=== PATIENT | male | born 1945 | race Caucasian/White ===

== ENCOUNTER 2022-01-07 11:05 | Inpatient (IN) | payer MEDICARE, OTHER ==
[~2022-01-07] VITALS: Ht 180.3 cm; Wt 101.6 kg
[~2022-01-07 11:05] MED LIST: AMLO-489 PO; ATOR20TA50 PO; DULO20CA PO; GABA300C10 PO; LOSA100T33 PO; METO1TAB9 PO; SULI200T5 PO
[2022-01-07] MEDS ORDERED: SODIUM CHLORIDE 0.9% 2,000 ML IV ONE (11:24)
[2022-01-07] MEDS ORDERED: VANCOMYCIN 1GM/250ML 250 ML IV ONE (11:45)
[2022-01-07] MEDS ORDERED: CEFEPIME 1GM/ 50ML 50 ML IV ONE (11:45)
[2022-01-07 12:04] LABS: Basophils # (auto) 0 10 ^3/uL (0-0.2); Basophils % (auto) 0.2 % (0.0-2.0); Eosinophils # (auto) 0.2 10 ^3/uL (0-0.8); Eosinophils % (auto) 2.4 % (0.0-7.0); Hematocrit 44.3 % (41.0-53.0); Hemoglobin 14.6 g/dL (13.5-17.5); Lymphocytes # (auto) 0.4 10 ^3/uL (0.4-5.4); Mean Corpuscular Hemoglobin 31.1 pg (28.0-32.0); Mean Corpuscular Hgb Conc. 33.1 g/dL (32.0-36.0); Mean Corpuscular Volume 94.2 fL (80.0-100.0); Monocytes # (auto) 0.6 10 ^3/uL (0-1.3); Monocytes % (auto) 6.3 % (0.0-12.0); Neutrophils # (auto) 8.5 10 ^3/uL (1.6-8.6); Neutrophils % (auto) 87.1 % (37.0-80.0); Red Cell Distribution Width 16.7 % (11.8-14.3); White Blood Cell 9.7 10^3/uL (4.4-10.8)
[2022-01-07 12:18] LABS: Albumin 2.9 g/dL (3.4-5.0); Magnesium 2.8 mg/dL (1.6-2.6)
[2022-01-07 12:21] LABS: BUN/Creatinine Ratio 13.7; Bilirubin, Total 1.1 mg/dL (0.2-1.0); Total Protein 6.2 g/dL (6.4-8.2)
[2022-01-07] MEDS ORDERED: ALBUTEROL SULF 2.5 MG/0.5ML(0.5%) NEB SOLN NEB ONE (13:00)
[2022-01-07] MEDS ORDERED: CALCIUM GLUC 1,000mg/50ml-NS 50 ML IV ONE (13:00)
[2022-01-07] MEDS ORDERED: DEXTROSE (50%) 50ML SYRG IV ONE (13:00)
[2022-01-07] MEDS ORDERED: InsuLIN REG 1unit/0.01ml Soln (100units/ml) IV ONE (13:00)
[2022-01-07] MEDS ORDERED: SODIUM ZIRCONIUM CYCL 10 GM PAK PO ONE ×2 (13:00→19:30)
[2022-01-07] MEDS ORDERED: SODIUM BICARBONATE 50ML VIAL 150 ML in D5W 5% 1,000 ML IV ONE (13:15)
[2022-01-07] MEDS ORDERED: SODIUM BICARBONATE 8.4 % INJ 50ML VIAL IV ONE (13:15)
[2022-01-07] MEDS ORDERED: FUROSEMIDE 100 MG/10ML VIAL IV ONE (13:15)
[2022-01-07 13:51] LABS: INR 1.14 (0.9-1.15); Partial Thromboplastin Time 34.2 sec (23.6-33.0)
[2022-01-07 16:05] LABS: Urine Bacteria NONE SEEN /hpf (None Seen); Urine Blood TRACE /uL (Negative); Urine WBC <1 /hpf (0 - 3)
[2022-01-07 16:59] LABS: BUN/Creatinine Ratio 14.6; Potassium 5.1 mmol/L (3.5-5.1)
[2022-01-07] MEDS ORDERED: cefTRIAXone 1GM/50ML D5W 50 ML IV ONE (19:30)
[2022-01-07] MEDS ORDERED: ONDANSETRON HCL 4 MG/2 ML VIAL IV PRN (19:30)
[2022-01-07] MEDS ORDERED: ACETAMINOPHEN 325 MG TAB PO PRN (19:30)
[2022-01-07] MEDS ORDERED: DOCUSATE SOD 100 MG CAP PO PRN (19:30)
[2022-01-07] MEDS ORDERED: TAMSULOSIN HYDROCHLORIDE 0.4 MG CAP PO ONE (19:45)
[2022-01-07 19:59] LABS: Creatinine, Urine 39 mg/dL (30.0-125.0); Sodium Urine 26 mmol/L (40-220)
[2022-01-07] MEDS ORDERED: SODIUM CHLORIDE 0.9% 1,000 ML IV ONE ×2 (20:45→23:15)
[2022-01-07] MEDS ORDERED: FUROSEMIDE 40 MG/4 ML VIAL IV SCH (22:00)
[2022-01-07] MEDS ORDERED: ALBUMIN 25% 100 ML IV ONE (22:15)
[2022-01-07] MEDS: SODIUM CHLOR 0.9% PF (SALINE LOCK) 10ML VIAL/SYR IV SCH (22:17)
[2022-01-08] MEDS ORDERED: NOREPINEPHRINE 8 MG/250ML KIT 250 ML IV ONE (02:14)
[2022-01-08] MEDS: NOREPINEPHRINE 8 MG/250ML KIT 250 ML IV SCH (02:15)
[2022-01-08] MEDS: HYDROcodone-ACET 5/325MG TAB PO PRN (02:25)
[2022-01-08 02:46] LABS: BUN/Creatinine Ratio 19.5; Calcium 7.6 mg/dL (8.5-10.1); Potassium 4.3 mmol/L (3.5-5.1)
[2022-01-08] MEDS: SODIUM CHLOR 0.9% PF (SALINE LOCK) 10ML VIAL/SYR IV SCH ×3 (06:29→20:42)
[2022-01-08 07:23] LABS: Calcium 7.9 mg/dL (8.5-10.1); Potassium 4.2 mmol/L (3.5-5.1)
[2022-01-08 07:26] LABS: BUN/Creatinine Ratio 22.7
[2022-01-08] MEDS: SODIUM CHLORIDE 0.9% 1,000 ML IV SCH (11:00)
[2022-01-08 11:31] LABS: BUN/Creatinine Ratio 24.9; Potassium 4.8 mmol/L (3.5-5.1)
[2022-01-08] MEDS: FUROSEMIDE 40 MG/4 ML VIAL IV SCH (18:06)
[2022-01-09] MEDS: HYDROcodone-ACET 5/325MG TAB PO PRN (01:27)
[2022-01-09] MEDS: NOREPINEPHRINE 8 MG/250ML KIT 250 ML IV SCH (02:15)
[2022-01-09] MEDS: SODIUM CHLORIDE 0.9% 1,000 ML IV SCH ×2 (02:40→18:14)
[2022-01-09] MEDS: SODIUM CHLOR 0.9% PF (SALINE LOCK) 10ML VIAL/SYR IV SCH ×3 (03:46→21:22)
[2022-01-09] MEDS: FUROSEMIDE 40 MG/4 ML VIAL IV SCH ×2 (05:08→17:39)
[2022-01-09 06:21] LABS: Basophils # (auto) 0 10 ^3/uL (0-0.2); Basophils % (auto) 0.2 % (0.0-2.0); Eosinophils # (auto) 0.3 10 ^3/uL (0-0.8); Eosinophils % (auto) 3.3 % (0.0-7.0); Hematocrit 38.5 % (41.0-53.0); Hemoglobin 12.9 g/dL (13.5-17.5); Lymphocytes # (auto) 0.6 10 ^3/uL (0.4-5.4); Lymphocytes % (auto) 7.5 % (10.0-50.0); Mean Corpuscular Hemoglobin 31.1 pg (28.0-32.0); Mean Corpuscular Hgb Conc. 33.5 g/dL (32.0-36.0); Monocytes # (auto) 0.7 10 ^3/uL (0-1.3); Neutrophils # (auto) 6.7 10 ^3/uL (1.6-8.6); Red Blood Cells 4.14 10^6/uL (4.5-5.90); Red Cell Distribution Width 16.7 % (11.8-14.3); White Blood Cell 8.2 10^3/uL (4.4-10.8)
[2022-01-09 06:39] LABS: Albumin 2.7 g/dL (3.4-5.0); Calcium 8.4 mg/dL (8.5-10.1); Potassium 4.6 mmol/L (3.5-5.1)
[2022-01-09 06:43] LABS: Total Protein 5.8 g/dL (6.4-8.2)
[2022-01-09 16:52] VITALS: BP 137/80
[2022-01-09] MEDS ORDERED: TAMSULOSIN HYDROCHLORIDE 0.4 MG CAP PO SCH (18:00)
[2022-01-09 21:55] VITALS: BP 147/90
[2022-01-10 05:00] VITALS: BP 151/77
[2022-01-10 05:15] LABS: Basophils # (auto) 0 10 ^3/uL (0-0.2); Basophils % (auto) 0.6 % (0.0-2.0); Eosinophils # (auto) 0.3 10 ^3/uL (0-0.8); Eosinophils % (auto) 4.1 % (0.0-7.0); Hematocrit 36.9 % (41.0-53.0); Hemoglobin 12.4 g/dL (13.5-17.5); Lymphocytes % (auto) 13.5 % (10.0-50.0); Mean Corpuscular Hemoglobin 31.7 pg (28.0-32.0); Mean Corpuscular Hgb Conc. 33.5 g/dL (32.0-36.0); Mean Corpuscular Volume 94.4 fL (80.0-100.0); Monocytes # (auto) 0.7 10 ^3/uL (0-1.3); Monocytes % (auto) 9.9 % (0.0-12.0); Neutrophils # (auto) 5.2 10 ^3/uL (1.6-8.6); Neutrophils % (auto) 71.9 % (37.0-80.0); Red Cell Distribution Width 16.3 % (11.8-14.3); White Blood Cell 7.3 10^3/uL (4.4-10.8)
[2022-01-10 05:35] LABS: Albumin 2.6 g/dL (3.4-5.0); Calcium 8.4 mg/dL (8.5-10.1); Potassium 3.7 mmol/L (3.5-5.1)
[2022-01-10 05:39] LABS: BUN/Creatinine Ratio 31.1; Bilirubin, Total 0.8 mg/dL (0.2-1.0); Total Protein 5.9 g/dL (6.4-8.2)
[2022-01-10] MEDS: FUROSEMIDE 40 MG/4 ML VIAL IV SCH (05:45)
[2022-01-10] MEDS: SODIUM CHLOR 0.9% PF (SALINE LOCK) 10ML VIAL/SYR IV SCH ×2 (05:46→14:12)
[2022-01-10 09:00] VITALS: BP 140/77
[2022-01-10] MEDS ORDERED: TAM04C PO (10:14)
[2022-01-10] MEDS ORDERED: POTA10TA51 PO (10:14)
[2022-01-10] MEDS ORDERED: FURO1TAB31 PO (10:14)
[2022-01-10] MEDS: SODIUM CHLORIDE 0.9% 1,000 ML IV SCH (11:30)
[2022-01-10 13:00] VITALS: BP 134/71
[2022-01-10 15:39] VITALS: BP 145/68
[2022-01-10 15:49] VITALS: BP 145/68
[2022-01-10 16:41] VITALS: BP 140/80
== END 2022-01-10 18:04 | disposition home or self-care (01) | DRG 70 ==
LOC: EDBD 11:05 → ER 11:05 → OVERFLOW 19:24 → WEST WING 01-09 13:02
PROVIDERS: ADMIT Internal Medicine; ATTEND Family Medicine
DX: G93.41 Metabolic encephalopathy (principal); I50.41 Acute combined systolic (congestive) and diastolic (congestive) heart failure; N17.0 Acute kidney failure with tubular necrosis; J98.11 Atelectasis; N13.8 Other obstructive and reflux uropathy; N39.0 Urinary tract infection, site not specified; I11.0 Hypertensive heart disease with heart failure; E87.5 Hyperkalemia; N40.1 Benign prostatic hyperplasia with lower urinary tract symptoms; E78.00 Pure hypercholesterolemia, unspecified; E11.9 Type 2 diabetes mellitus without complications; M19.90 Unspecified osteoarthritis, unspecified site; R79.89 Other specified abnormal findings of blood chemistry; R94.31 Abnormal electrocardiogram [ECG] [EKG]; Z90.49 Acquired absence of other specified parts of digestive tract; Z79.899 Other long term (current) drug therapy; Z20.822 Contact with and (suspected) exposure to COVID-19
CPT/HCPCS: 36415; 51702; 70450; 71045; 74176; 76775; 80048; 80053; 81001; 82570; 83605; 83735; 83880; 84154; 84300; 84484; 85025; 85610; 85730; 87040; 87086; 93005; 93306; 94640; 96361; 96365; 96367; 96368; 96375; 99291; G0378; J0696; J1815; J2405; P9047

== ENCOUNTER 2022-05-26 13:41 | Inpatient (IN) | payer MEDICARE, OTHER ==
[~2022-05-26] VITALS: Ht 180.3 cm; Wt 80.0 kg
[~2022-05-26 13:41] MED LIST changes: +FURO1TAB31 PO; +POTA10TA51 PO; +TAM04C PO
[2022-05-26] MEDS ORDERED: AZITHROMYCIN 500MG/ 250ML 250 ML IV ONE (14:00)
[2022-05-26] MEDS ORDERED: methylPREDNISolone SOD SUCC 125 MG/2 ML VL IV ONE (14:00)
[2022-05-26 14:25] VITALS: BP 73/52
[2022-05-26] MEDS ORDERED: REMDESIVIR PER PHARMACY 0 ML IV SCH (15:00)
[2022-05-26] MEDS ORDERED: NOREPINEPHRINE 8 MG/250ML KIT 250 ML IV SCH (15:00)
[2022-05-26 15:18] LABS: Basophils # (auto) 0 10 ^3/uL (0-0.2); Basophils % (auto) 0.4 % (0.0-2.0); Eosinophils # (auto) 0 10 ^3/uL (0-0.8); Eosinophils % (auto) 0.1 % (0.0-7.0); Hematocrit 48.5 % (41.0-53.0); Hemoglobin 16.1 g/dL (13.5-17.5); Lymphocytes # (auto) 0.9 10 ^3/uL (0.4-5.4); Lymphocytes % (auto) 25.2 % (10.0-50.0); Mean Corpuscular Hemoglobin 31.5 pg (28.0-32.0); Mean Corpuscular Hgb Conc. 33.2 g/dL (32.0-36.0); Mean Corpuscular Volume 94.6 fL (80.0-100.0); Monocytes # (auto) 0.3 10 ^3/uL (0-1.3); Monocytes % (auto) 7.5 % (0.0-12.0); Neutrophils # (auto) 2.3 10 ^3/uL (1.6-8.6); Neutrophils % (auto) 66.8 % (37.0-80.0); Nucleated Red Blood Cells % 0.3 %; Red Blood Cells 5.13 10^6/uL (4.5-5.90); Red Cell Distribution Width 14.4 % (11.8-14.3); White Blood Cell 3.5 10^3/uL (4.4-10.8)
[2022-05-26 15:38] LABS: Lactic Acid w/Reflex 2.4 mmol/L (0.4-2.0)
[2022-05-26 15:39] LABS: Albumin 3.2 g/dL (3.4-5.0); Calcium 8.1 mg/dL (8.5-10.1); Magnesium 2.4 mg/dL (1.6-2.6); Potassium 4.7 mmol/L (3.5-5.1)
[2022-05-26 15:42] LABS: BUN/Creatinine Ratio 18.1; Bilirubin, Total 0.8 mg/dL (0.2-1.0); Total Protein 6.3 g/dL (6.4-8.2)
[2022-05-26] MEDS ORDERED: REMDESIVIR 200 MG in NS 210ml LOADING DOSE ADULT IV ONE (17:15)
[2022-05-26] MEDS ORDERED: MORPHINE SULFATE INJ 2 MG/ml SYRG IV PRN ×2 (17:30)
[2022-05-26] MEDS ORDERED: ACETAMINOPHEN 500 MG TAB PO PRN (17:30)
[2022-05-26] MEDS ORDERED: DOCUSATE SOD 100 MG CAP PO PRN (17:30)
[2022-05-26] MEDS ORDERED: HYDROcodone-ACET 5/325MG TAB PO PRN (17:30)
[2022-05-26] MEDS ORDERED: ONDANSETRON HCL 4 MG/2 ML VIAL IV PRN (17:30)
[2022-05-26] MEDS ORDERED: NITROGLYCERIN 0.4 MG SL TAB SL PRN (17:30)
[2022-05-26 20:21] LABS: Urine Amorphous Crystal FEW /hpf (None Seen); Urine Bacteria NONE SEEN /hpf (None Seen); Urine Blood TRACE /uL (Negative); Urine Hyaline Cast FEW /lpf (0 - 2); Urine Mucus FEW (None Seen); Urine Specific Gravity 1.014 (1.001-1.035); Urine WBC 143 /hpf (0 - 3); Urine WBC Clumps PRESENT /hpf (None Seen)
[2022-05-26] MEDS: ENOXAPARIN SOD 40 MG/0.4 ML SYRINGE SC SCH (21:45)
[2022-05-26] MEDS ORDERED: DOXYCYCLINE 100MG/250ML 250 ML IV SCH (22:00)
[2022-05-27 05:04] LABS: Basophils # (auto) 0 10 ^3/uL (0-0.2); Basophils % (auto) 0.1 % (0.0-2.0); Eosinophils # (auto) 0 10 ^3/uL (0-0.8); Hematocrit 47.8 % (41.0-53.0); Hemoglobin 16.3 g/dL (13.5-17.5); Lymphocytes # (auto) 0.5 10 ^3/uL (0.4-5.4); Lymphocytes % (auto) 5.3 % (10.0-50.0); Mean Corpuscular Hemoglobin 31.5 pg (28.0-32.0); Mean Corpuscular Volume 92.6 fL (80.0-100.0); Monocytes # (auto) 0.4 10 ^3/uL (0-1.3); Monocytes % (auto) 4.3 % (0.0-12.0); Neutrophils # (auto) 8.9 10 ^3/uL (1.6-8.6); Neutrophils % (auto) 90.3 % (37.0-80.0); Red Blood Cells 5.17 10^6/uL (4.5-5.90); Red Cell Distribution Width 14.3 % (11.8-14.3); White Blood Cell 9.9 10^3/uL (4.4-10.8)
[2022-05-27 05:05] VITALS: BP_SYST 129; BP_SYST 140; BP_DIAS 84; BP_DIAS 86
[2022-05-27 05:14] LABS: Albumin 3.2 g/dL (3.4-5.0); BUN/Creatinine Ratio 20.2; Calcium 8.9 mg/dL (8.5-10.1)
[2022-05-27 05:17] LABS: Bilirubin, Total 0.7 mg/dL (0.2-1.0); Total Protein 6.6 g/dL (6.4-8.2)
[2022-05-27 08:00] VITALS: BP 140/86
[2022-05-27] MEDS: AZITHROMYCIN 500MG/ 250ML 250 ML IV SCH (08:30)
[2022-05-27] MEDS: PANTOPRAZOLE 40 MG/10 ML VIAL INJ IV SCH (08:30)
[2022-05-27] MEDS: ASCORBIC ACID 1,000 MG TAB PO SCH (08:30)
[2022-05-27] MEDS: ZINC SULFATE 220mg CAP or TAB PO SCH (08:31)
[2022-05-27] MEDS: CHOLECALCIFEROL (VITD3) 2,000 UNIT CAP/TAB PO SCH (08:31)
[2022-05-27] MEDS: ENOXAPARIN SOD 40 MG/0.4 ML SYRINGE SC SCH (08:40)
[2022-05-27 08:42] VITALS: BP 140/86
[2022-05-27] MEDS ORDERED: ENOXAPARIN SOD 40 MG/0.4 ML SYRINGE SC SCH (10:00)
[2022-05-27] MEDS ORDERED: DexAMETHasone SOD PHOS 10MG/1ML VIAL INJ IV SCH (10:00)
[2022-05-27] MEDS ORDERED: FUROSEMIDE 20 MG/2 ML VIAL IV ONE (10:15)
[2022-05-27] MEDS ORDERED: cefTRIAXone 1GM/50ML D5W 50 ML IV ONE (10:15)
[2022-05-27] MEDS ORDERED: ALBUTEROL SULF 2.5 MG/0.5ML(0.5%) NEB SOLN NEB SCH (12:00)
[2022-05-27] MEDS ORDERED: IPRATROPIUM BROM 0.5 MG/2.5ML INH SOL NEB SCH (12:00)
[2022-05-27 12:38] VITALS: BP 130/84
[2022-05-27] MEDS: ALBUTEROL SULF HFA 90MCG INH 200DOSE IN SCH ×2 (14:29→22:50)
[2022-05-27] MEDS: REMDESIVIR 100mg 100 MG in SODIUM CHL 0.9% 230 ML IV SCH (15:26)
[2022-05-27 16:48] VITALS: BP 22/80
[2022-05-27] MEDS ORDERED: ROPI3TAB4 PO (21:21)
[2022-05-27] MEDS ORDERED: BISA-13 PO (21:21)
[2022-05-27 22:00] VITALS: BP 151/93
[2022-05-27] MEDS: BUDESONIDE (INHALATION) 180 MCG IH IN SCH (22:50)
[2022-05-28 05:00] VITALS: BP 144/84
[2022-05-28] MEDS: ALBUTEROL SULF HFA 90MCG INH 200DOSE IN SCH ×3 (06:06→22:00)
[2022-05-28 06:24] LABS: Basophils # (auto) 0 10 ^3/uL (0-0.2); Eosinophils # (auto) 0 10 ^3/uL (0-0.8); Hemoglobin 14.6 g/dL (13.5-17.5); Lymphocytes # (auto) 0.6 10 ^3/uL (0.4-5.4); Monocytes # (auto) 0.6 10 ^3/uL (0-1.3); Neutrophils # (auto) 8.7 10 ^3/uL (1.6-8.6)
[2022-05-28 06:28] LABS: Basophils % (auto) 0.1 % (0.0-2.0); Hematocrit 41.9 % (41.0-53.0); Lymphocytes % (auto) 6.1 % (10.0-50.0); Mean Corpuscular Hgb Conc. 34.8 g/dL (32.0-36.0); Mean Corpuscular Volume 91.8 fL (80.0-100.0); Monocytes % (auto) 6.3 % (0.0-12.0); Neutrophils % (auto) 87.5 % (37.0-80.0); Red Blood Cells 4.57 10^6/uL (4.5-5.90); Red Cell Distribution Width 14.2 % (11.8-14.3); White Blood Cell 9.9 10^3/uL (4.4-10.8)
[2022-05-28 06:45] LABS: Albumin 2.9 g/dL (3.4-5.0); Calcium 8.3 mg/dL (8.5-10.1); Potassium 4.1 mmol/L (3.5-5.1)
[2022-05-28 06:47] LABS: BUN/Creatinine Ratio 50.9
[2022-05-28 06:50] LABS: Bilirubin, Total 0.9 mg/dL (0.2-1.0); Total Protein 5.5 g/dL (6.4-8.2)
[2022-05-28 08:00] VITALS: BP 136/94
[2022-05-28] MEDS: PANTOPRAZOLE 40 MG/10 ML VIAL INJ IV SCH (09:37)
[2022-05-28] MEDS: cefTRIAXone 1GM/50ML D5W 50 ML IV SCH (09:37)
[2022-05-28] MEDS: CHOLECALCIFEROL (VITD3) 2,000 UNIT CAP/TAB PO SCH (09:39)
[2022-05-28] MEDS: ENOXAPARIN SOD 40 MG/0.4 ML SYRINGE SC SCH (09:39)
[2022-05-28] MEDS: ZINC SULFATE 220mg CAP or TAB PO SCH (09:39)
[2022-05-28] MEDS: ASCORBIC ACID 1,000 MG TAB PO SCH (09:39)
[2022-05-28] MEDS: DexAMETHasone SOD PHOS 10MG/1ML VIAL INJ IV SCH (09:44)
[2022-05-28] MEDS ORDERED: FUROSEMIDE 20 MG/2 ML VIAL IV SCH (10:00)
[2022-05-28] MEDS: BUDESONIDE (INHALATION) 180 MCG IH IN SCH ×2 (10:20→22:00)
[2022-05-28] MEDS: AZITHROMYCIN 500MG/ 250ML 250 ML IV SCH (11:28)
[2022-05-28 12:00] VITALS: BP 140/84
[2022-05-28] MEDS: REMDESIVIR 100mg 100 MG in SODIUM CHL 0.9% 230 ML IV SCH (14:30)
[2022-05-28] MEDS ORDERED: ROPINIROLE PO ONE (15:00)
[2022-05-28 16:00] VITALS: BP 147/84
[2022-05-28 21:39] VITALS: BP 132/72
[2022-05-29 05:00] VITALS: BP 131/68
[2022-05-29 07:18] LABS: Albumin 2.6 g/dL (3.4-5.0); Calcium 8.2 mg/dL (8.5-10.1); Potassium 3.9 mmol/L (3.5-5.1)
[2022-05-29 07:24] LABS: BUN/Creatinine Ratio 49.1; Total Protein 5.4 g/dL (6.4-8.2)
[2022-05-29] MEDS: ALBUTEROL SULF HFA 90MCG INH 200DOSE IN SCH ×3 (07:58→18:36)
[2022-05-29 08:00] VITALS: BP 127/71
[2022-05-29] MEDS: cefTRIAXone 1GM/50ML D5W 50 ML IV SCH (08:21)
[2022-05-29] MEDS: BUDESONIDE (INHALATION) 180 MCG IH IN SCH ×2 (10:00→18:34)
[2022-05-29] MEDS ORDERED: GLUCAGON HYDROCHLORIDE (RDNA) 1 MG VIAL IV ONE (10:15)
[2022-05-29] MEDS ORDERED: POTASSIUM CHL 20 Meq TABLET PO ONE (10:45)
[2022-05-29] MEDS: ZINC SULFATE 220mg CAP or TAB PO SCH (11:23)
[2022-05-29] MEDS: ENOXAPARIN SOD 40 MG/0.4 ML SYRINGE SC SCH (11:23)
[2022-05-29] MEDS: AZITHROMYCIN 500MG/ 250ML 250 ML IV SCH (11:23)
[2022-05-29] MEDS: CHOLECALCIFEROL (VITD3) 2,000 UNIT CAP/TAB PO SCH (11:24)
[2022-05-29] MEDS: ASCORBIC ACID 1,000 MG TAB PO SCH (11:24)
[2022-05-29] MEDS: FUROSEMIDE 20 MG/2 ML VIAL IV SCH (11:25)
[2022-05-29] MEDS: DexAMETHasone SOD PHOS 10MG/1ML VIAL INJ IV SCH (11:26)
[2022-05-29 12:00] VITALS: BP 126/69
[2022-05-29] MEDS: ROPINIROLE 3 MG PO SCH (15:10)
[2022-05-29] MEDS: REMDESIVIR 100mg 100 MG in SODIUM CHL 0.9% 230 ML IV SCH (15:18)
[2022-05-29 16:00] VITALS: BP 121/72
[2022-05-29 22:00] VITALS: BP 137/78
[2022-05-30 05:00] VITALS: BP 145/73
[2022-05-30 06:29] LABS: Basophils # (auto) 0 10 ^3/uL (0-0.2); Basophils % (auto) 0.1 % (0.0-2.0); Eosinophils # (auto) 0 10 ^3/uL (0-0.8); Lymphocytes # (auto) 0.8 10 ^3/uL (0.4-5.4); Lymphocytes % (auto) 8.9 % (10.0-50.0); Mean Corpuscular Hemoglobin 31.2 pg (28.0-32.0); Mean Corpuscular Volume 91.9 fL (80.0-100.0); Monocytes # (auto) 0.8 10 ^3/uL (0-1.3); Monocytes % (auto) 8.9 % (0.0-12.0); Neutrophils # (auto) 7.1 10 ^3/uL (1.6-8.6); Neutrophils % (auto) 82.1 % (37.0-80.0); Red Blood Cells 4.79 10^6/uL (4.5-5.90); White Blood Cell 8.7 10^3/uL (4.4-10.8)
[2022-05-30 06:43] LABS: Albumin 2.8 g/dL (3.4-5.0); BUN/Creatinine Ratio 48.3; Calcium 8.7 mg/dL (8.5-10.1); Potassium 3.6 mmol/L (3.5-5.1)
[2022-05-30 06:46] LABS: Bilirubin, Total 0.8 mg/dL (0.2-1.0); Total Protein 5.9 g/dL (6.4-8.2)
[2022-05-30] MEDS: ALBUTEROL SULF HFA 90MCG INH 200DOSE IN SCH ×2 (07:22→14:00)
[2022-05-30] MEDS: BUDESONIDE (INHALATION) 180 MCG IH IN SCH (07:23)
[2022-05-30 09:00] VITALS: BP 144/75
[2022-05-30] MEDS: DexAMETHasone SOD PHOS 10MG/1ML VIAL INJ IV SCH (09:25)
[2022-05-30] MEDS: cefTRIAXone 1GM/50ML D5W 50 ML IV SCH (09:25)
[2022-05-30] MEDS: FUROSEMIDE 20 MG/2 ML VIAL IV SCH (09:26)
[2022-05-30] MEDS: ZINC SULFATE 220mg CAP or TAB PO SCH (09:27)
[2022-05-30] MEDS: CHOLECALCIFEROL (VITD3) 2,000 UNIT CAP/TAB PO SCH (09:27)
[2022-05-30] MEDS: ROPINIROLE 3 MG PO SCH (09:27)
[2022-05-30] MEDS: ASCORBIC ACID 1,000 MG TAB PO SCH (09:27)
[2022-05-30] MEDS: AZITHROMYCIN 500MG/ 250ML 250 ML IV SCH (11:45)
[2022-05-30 13:00] VITALS: BP 130/78
[2022-05-30] MEDS ORDERED: DOXYCYCLINE 100 MG TAB/CAP PO ONE (13:45)
[2022-05-30] MEDS: REMDESIVIR 100mg 100 MG in SODIUM CHL 0.9% 230 ML IV SCH (15:30)
[2022-05-30 16:30] VITALS: BP 155/83
[2022-05-30] MEDS: DOXYCYCLINE 100 MG TAB/CAP PO SCH (21:40)
[2022-05-30 22:00] VITALS: BP 154/79
[2022-05-31 05:00] VITALS: BP 141/73
[2022-05-31 08:00] VITALS: BP 135/80
[2022-05-31] MEDS: cefTRIAXone 1GM/50ML D5W 50 ML IV SCH (08:43)
[2022-05-31] MEDS: AZITHROMYCIN 500MG/ 250ML 250 ML IV SCH (09:37)
[2022-05-31] MEDS: FUROSEMIDE 20 MG/2 ML VIAL IV SCH (09:38)
[2022-05-31] MEDS: ZINC SULFATE 220mg CAP or TAB PO SCH (09:39)
[2022-05-31] MEDS: DOXYCYCLINE 100 MG TAB/CAP PO SCH ×2 (09:39→22:19)
[2022-05-31] MEDS: CHOLECALCIFEROL (VITD3) 2,000 UNIT CAP/TAB PO SCH (09:39)
[2022-05-31] MEDS: ASCORBIC ACID 1,000 MG TAB PO SCH (09:39)
[2022-05-31] MEDS ORDERED: DexAMETHasone 4 MG TAB PO SCH (10:00)
[2022-05-31] MEDS: ALBUTEROL SULF HFA 90MCG INH 200DOSE IN SCH ×3 (10:55→19:00)
[2022-05-31] MEDS: BUDESONIDE (INHALATION) 180 MCG IH IN SCH ×3 (10:55→19:00)
[2022-05-31 12:00] VITALS: BP 133/82
[2022-05-31 16:00] VITALS: BP 137/89
[2022-05-31] MEDS: Juven Orange Powder PACKET 27.5gm PO SCH (18:50)
[2022-05-31 22:00] VITALS: BP 125/75
[2022-06-01] VITALS (10 sets, daily range): BP systolic 118–137; BP diastolic 83–90
[2022-06-01] MEDS: ALBUTEROL SULF HFA 90MCG INH 200DOSE IN SCH ×3 (06:00→19:10)
[2022-06-01] MEDS: cefTRIAXone 1GM/50ML D5W 50 ML IV SCH (09:02)
[2022-06-01] MEDS: ASCORBIC ACID 1,000 MG TAB PO SCH (10:11)
[2022-06-01] MEDS: CHOLECALCIFEROL (VITD3) 2,000 UNIT CAP/TAB PO SCH (10:11)
[2022-06-01] MEDS: DOXYCYCLINE 100 MG TAB/CAP PO SCH ×2 (10:11→21:58)
[2022-06-01] MEDS: ZINC SULFATE 220mg CAP or TAB PO SCH (10:11)
[2022-06-01] MEDS: DexAMETHasone 4 MG TAB PO SCH (10:13)
[2022-06-01] MEDS: BUDESONIDE (INHALATION) 180 MCG IH IN SCH ×2 (10:18→19:10)
[2022-06-01] MEDS: FUROSEMIDE 40 MG TAB PO SCH (10:24)
[2022-06-01] MEDS: POTASSIUM CHL 10 Meq TABLET PO SCH (10:25)
[2022-06-01] MEDS: Juven Orange Powder PACKET 27.5gm PO SCH ×2 (12:23→18:00)
[2022-06-02 05:00] VITALS: BP 117/85
[2022-06-02 08:00] VITALS: BP 128/80
[2022-06-02] MEDS: Juven Orange Powder PACKET 27.5gm PO SCH (08:00)
[2022-06-02] MEDS: cefTRIAXone 1GM/50ML D5W 50 ML IV SCH (09:20)
[2022-06-02] MEDS: CHOLECALCIFEROL (VITD3) 2,000 UNIT CAP/TAB PO SCH (09:49)
[2022-06-02] MEDS: ZINC SULFATE 220mg CAP or TAB PO SCH (09:49)
[2022-06-02] MEDS: ASCORBIC ACID 1,000 MG TAB PO SCH (09:50)
[2022-06-02] MEDS: POTASSIUM CHL 10 Meq TABLET PO SCH (09:50)
[2022-06-02] MEDS: DOXYCYCLINE 100 MG TAB/CAP PO SCH (09:50)
[2022-06-02] MEDS: FUROSEMIDE 40 MG TAB PO SCH (09:50)
[2022-06-02] MEDS: ALBUTEROL SULF HFA 90MCG INH 200DOSE IN SCH ×2 (10:15→15:07)
[2022-06-02] MEDS: BUDESONIDE (INHALATION) 180 MCG IH IN SCH (10:16)
[2022-06-02 12:00] VITALS: BP 125/87
[2022-06-02] MEDS: DexAMETHasone 4 MG TAB PO SCH (14:17)
== END 2022-06-02 15:20 | DRG 871 ==
LOC: EDUNIT# 13:41 → EDBD 13:41 → ER 13:43 → TELE 17:39 → TELE-CENTR 05-27 04:50
PROVIDERS: ADMIT Nurse Practitioner Family; ATTEND Internal Medicine Pulmonary Disease
PROC: 5A09357 Assistance with Respiratory Ventilation, Less than 24 Consecutive Hours, Continuous Positive Airway Pressure (ICD-10-PCS; principal; 2022-05-26)
PROC: XW033E5 Introduction of Remdesivir Anti-infective into Peripheral Vein, Percutaneous Approach, New Technology Group 5 (ICD-10-PCS; 2022-05-26)
DX: A41.89 Other specified sepsis (principal); J12.82 Pneumonia due to coronavirus disease 2019; R65.21 Severe sepsis with septic shock; U07.1 COVID-19; J96.01 Acute respiratory failure with hypoxia; N39.0 Urinary tract infection, site not specified; I50.32 Chronic diastolic (congestive) heart failure; I11.0 Hypertensive heart disease with heart failure; E11.9 Type 2 diabetes mellitus without complications; D69.6 Thrombocytopenia, unspecified; Z90.49 Acquired absence of other specified parts of digestive tract; B96.4 Proteus (mirabilis) (morganii) as the cause of diseases classified elsewhere; N40.0 Benign prostatic hyperplasia without lower urinary tract symptoms; M19.90 Unspecified osteoarthritis, unspecified site; E78.5 Hyperlipidemia, unspecified; Z79.84 Long term (current) use of oral hypoglycemic drugs
CPT/HCPCS: 36415; 36600; 71045; 71275; 80053; 81001; 82728; 82805; 82962; 83036; 83605; 83615; 83735; 83880; 84443; 84484; 85025; 85379; 86141; 87040; 87086; 87088; 87186; 87426; 93005; 93306; 94640; 94660; 96365; 96367; 96375; 97163; 99291; C9113; G0378; J0696; J1100